=== PATIENT | male | born 1960 | race Caucasian/White ===

== ENCOUNTER 2020-09-12 13:05 | Emergency (ER) | payer MEDICAID, SELFPAY ==
[2020-09-12 13:05] VITALS: BP 164/82; PULSE 103; RESP 16; TEMP 36.2; O2SAT 97; BMI 35.9
--- NOTE | 2020-09-12 14:53 | EKG12_ITS ---
Test Reason : Blood Pressure : / mmHG Vent. Rate : 089 BPM Atrial Rate : 089 BPM P-R Int : 178 ms QRS Dur : 094 ms QT Int : 368 ms P-R-T Axes : 055 001 058 degrees QTc Int : 447 ms Normal sinus rhythm Normal ECG Confirmed by GRETCHEN RUIZ, BG ([id number]), editor continuity and script ANDRES COBURN ([id number]) on 09/15/2020 1:31:49 PM Referred By: C[facility]O Confirmed By:BG GODINEZ MD
--- NOTE | 2020-09-12 14:59 | EX.ED.DYSGE1 ---
HPI History of Present Illness Chief Complaint: Substance Abuse Informant: patient Narrative Narrative: 59-year-old male requesting detox from heroin/fentanyl. Patient states when he was 39 years old who fell off the back of a semi and ended up with herniated disc. He states that he was originally on Percocet and then transferred to methadone. He states his back pain has made it so he is pretty much either using a crutch or wheelchair. He was living down in [place] and his brothers so he moved back to [place]. He has been living in [place]. He was found it too hard to get back to his methadone clinic and [place] so he started using heroin and fentanyl off the street. He states that he is trying to get clean and moved back to [place] where he is originally from and where his family is. He was researching the Internet and has arranged an intake appointment with [facility] clinic in [place] for next week. He found [facility] on the Internet and request inpatient detox to help him with his physical symptoms. [facility] Medical History (Updated 09/12/20 @ 15:[address] Luc Barron DO) Chronic back pain Opiate abuse, continuous Allergy/AdvReac Type Severity Reaction Status Date / Time No Known Allergies Allergy Verified 09/12/20 13:07 Social History (Updated 09/12/20 @ 15:[address] Luc Barron DO) Smoking Status: Current every day smoker substance use type: heroin and opiates ROS ROS ED Constitutional Constitutional ED: Reports chills and sweats; Denies weight loss Eyes Eyes: Denies change in vision or diplopia ENT ENT ED: Reports rhinorrhea; Denies ear pain or sore throat Cardiovascular Cardiovascular: Denies chest pain, orthopnea, palpitations or racing heartbeat Respiratory/Chest Respiratory/Chest: Reports dyspnea; Denies cough or orthopnea Gastrointestinal Gastrointestinal: Reports abdominal pain, diarrhea, nausea and vomiting Genitourinary Genitourinary ED: Denies dysuria, hematuria or urinary frequency Musculoskeletal Musculoskeletal: Reports myalgias; Denies arthralgias Integumentary Denies abscess or rash Neurologic Neurologic: Reports headache(s); Denies weakness Psychiatric Psychiatric: Denies anxiety, depression, suicidal ideation or suicidal thoughts Endocrine Endocrinology: Denies polydipsia, polyphagia or polyuria Allergic/Immunologic Allergic/Immunologic ED: Denies mouth swelling, tongue swelling or urticaria EXAM Physical Exam Const Vital Signs: 09/12/20 13:05 Temperature 97.1 F L Temperature Source Temporal Pulse Rate 103 H Respiratory Rate 16 Blood Pressure 164/82 H Blood Pressure Mean 109 Pulse Ox 97 Oxygen Delivery Method Room Air Positive well nourished and well developed General Appearance ED: well developed HEENT Reports normocephalic, head/scalp atraumatic and moist mucous membranes HEENT Narrative: Clear rhinorrhea Eyes PERRL and EOMs intact bilaterally Neck no lymphadenopathy, supple and no JVD Resp normal respiratory effort and clear to auscultation bilaterally Cardio regular rate and no murmurs Rate: tachycardic GI normal to inspection, nondistended, normoactive bowel sounds and non-tender Palpation: soft Back/Spine no CVA tenderness and normal ROM Extremity normal to inspection General Extremety ED: Negative for edema General Extremity: Negative for edema Neuro oriented x3 and CN's II-XII intact bilaterally Sensorium / Orientation: alert Motor Exam: strength 5/5 throughout Psych mental status grossly normal Mood & Affect: tearful; Negative for depressed Skin no rashes or lesions noted and no wounds MDM MDM MDM Narrative Medical decision making narrative: Patient be medically cleared. If he agrees to the rules of the program patient will be discussed with the hospitalist for possible admission to the detox program. Unfortunately the patient notified nursing that he will not be able to stay for inpatient detox because he cannot find somebody to care for his dog. Patient will sign out AMA. He has a plan for next week and that he wants to go to a methadone clinic. EKG Initial EKG: Attestation: I personally reviewed and interpreted this EKG as follows: Comments: EKG demonstrates a normal sinus rhythm at a rate of 89. No concerning features of ACS or ectopy noted Discharge Plan Triage Chief Complaint: Substance Abuse ED Provider: Luc Barron Dx/Rx/DC Orders Clinical Impression: Opiate withdrawal Instructions: ED Opiate Abuse Primary Care Provider: Care Physician,No Primary Referrals: Care Physician,No Primary [Primary Care Provider] - [facility] [STAFF PHYSICIAN] - As soon as possible Activity Restrictions/Additional Instructions: We are happy to see you back if you were able to find somebody for your dog. Disposition Disposition: Against Medical Advice
[2020-09-12] MEDS: Ondansetron ODT 4 MG Tablet PO (15:19)
--- NOTE | 2020-09-12 15:27 | ED.RN ---
pt left AMA. he does not want to do the 3 day detox program.
== END 2020-09-12 15:33 | disposition left against medical advice (07) ==
PROVIDERS: Emergency Provider Emergency Medicine
DX: F11.23 Opioid dependence with withdrawal (principal); F17.200 Nicotine dependence, unspecified, uncomplicated; G89.29 Other chronic pain; M54.9 Dorsalgia, unspecified
CPT/HCPCS: 93005; 99282; A4216